=== PATIENT | male | born 1945 | race Caucasian/White ===

== ENCOUNTER 2019-05-27 08:19 | Inpatient (IN) | payer OTHER ==
[2019-05-27] VITALS (12 sets, daily range): BP systolic 89–162; BP diastolic 51–76
[~2019-05-27] VITALS: Ht 172.7 cm; Wt 35.0 kg
--- NOTE | 2019-05-27 08:20 | NUR ---
PT PRESENTS TO ED FROM [facility] WITH C/O SOB. PER PT HIS "LUNGS HURT" PT IS AAOX4 SPEAKING IN FULL SHORT SENTENCES REPORTS PRODUCTIVE COUGH WITH YELLOW PHLEGM PT IS SOB WITH LABORED BREATHING PT HAS HX OF COPD AND USP SMOKER PT ON FULL CM SINUS TACH, PLACED ON OXYGEN VIA MASK O2 SAT AT 68%, MILD DISTRESS, PT IN POSITION OF COMFORT WITH HOB ELEVATED AWAITING MD BLACKWELL AND ORDERS WILL MONITOR.
--- NOTE | 2019-05-27 08:26 | NUR ---
EKG IN PROGRESS
--- NOTE | 2019-05-27 08:27 | NUR ---
DR VENTURA AT BEDSIDE FOR MSE.
--- NOTE | 2019-05-27 08:30 | NUR ---
ABG BLOOD DRAW IN PROGRESS BY RT
--- NOTE | 2019-05-27 08:35 | NUR ---
LAB AT BEDSIDE FOR BLOOD DRAW
--- NOTE | 2019-05-27 08:45 | NUR ---
ABG RESULTS GIVEN TO DR VENTURA BY RT, PER DR VENTURA, PT TO BE INTUBATED PROCEDURE EXPLAINED TO PT PT VERBALIZED UNDERSTANDING AND AGREES WITH POC
--- NOTE | 2019-05-27 08:54 | NUR ---
INTUBATION IN PROGRESS. PT MEDICATED WITH ETOMIDATE 20MG IVP AND SUCCINYLCHOLINE 100MG IVP RT AT BEDSIDE DR VENTURA AT BEDSIDE APRIL RT AT BEDSIDE
--- NOTE | 2019-05-27 09:00 | NUR ---
PT PLACED ON SOFT RESTRAINS TO BILATERAL WRISTS FOR SAFETY.
[2019-05-27 09:01] LABS: CALCIUM 9.3 mg/dL (8.5-10.1); CARBON DIOXIDE 27.1 mmol/L (21-32); CHLORIDE SERUM 100 mmol/L (98-107); CREATININE SERUM 1.4 mg/dL (0.7-1.3); GLUCOSE SERUM 303 mg/dL (74-106); POTASSIUM SERUM 4.3 mmol/L (3.5-5.1); SODIUM SERUM 138 mmol/L (136-145)
[2019-05-27 09:03] LABS: BASOPHIL % 0.3 % (0-2)
[2019-05-27 09:06] LABS: ALKALINE PHOSPHATASE 88 U/L (46-116); ALT/SGPT 83 U/L (16-63); AST/SGOT 51 U/L (15-37); BILIRUBIN TOTAL 0.7 mg/dL (0.20-1.00); TOTAL PROTEIN, SERUM 7.2 g/dL (6.4-8.2)
[2019-05-27 09:08] LABS: ALBUMIN 3.3 g/dL (3.4-5.0)
--- NOTE | 2019-05-27 09:13 | NUR ---
PROPOFOL INFUSION STARTED AT THIS TIME AT 10MCG/KG/MIN DUE TO PTS RESTLESSNESS AND BITTING ON INTUBATION TUBE, RT AT BEDSIDE FOR SUCTIONING
[2019-05-27] MEDS ORDERED: LIPITOR10 MG PO (09:14)
[2019-05-27] MEDS ORDERED: REM15 PO (09:14)
[2019-05-27] MEDS ORDERED: PULMICORT0.5 MG/2 M NEB (09:14)
[2019-05-27] MEDS ORDERED: VITAMIN A AND1 EACH PO (09:14)
[2019-05-27] MEDS ORDERED: ALBUTEROL SULFAT3 ML NEB (09:15)
[2019-05-27] MEDS ORDERED: GOOD NEIGH1200 MG/15 PO (09:15)
[2019-05-27] MEDS ORDERED: PRE20 PO (09:15)
[2019-05-27] MEDS ORDERED: XARELTO10 M1 PO (09:15)
[2019-05-27] MEDS ORDERED: DULCOLAX10 M1 RC (09:15)
--- NOTE | 2019-05-27 09:15 | NUR ---
PORTABLE CXR AT BEDSIDE AT THIS TIME
[2019-05-27] MEDS ORDERED: GUAIFENESIN AN118 ML PO (09:16)
[2019-05-27] MEDS ORDERED: SENNA8.6 M2 PO (09:16)
[2019-05-27] MEDS ORDERED: TRAMADOL HCL50 MG PO (09:16)
[2019-05-27 09:30] LABS: PLATELET COUNT 451 x10^3mcL (130-400); RED CELL DISTRIBUTION WIDTH 15.4 % (11.5-14.5)
--- NOTE | 2019-05-27 09:49 | NUR ---
PTS DAUGHTER KWESI AT BEDSIDE REPORTS PT HAS BEEN IN AND OUT OF HOSPITAL AND REHAB FACILITIES SINCE March, DAUGHTER REPORTS PT WAS AT [facility] ON 03/26/19 THEN DISCHARGED TO [facility] FOR REHAB UNSURE SHE IS UNSURE OF THE EXACT CAUSE, PT THEN HAS BEEN TO [facility] X 3 EVENTS SINCE AND TRANSFERRED TO [facility] AND THEN TO [facility] SINCE 05/26/19. PT RESTING COMFORTABLY AT THIS TIME. WILL MONITOR
--- NOTE | 2019-05-27 10:05 | NUR ---
2ND ABG BLOOD DRAW IN PROGRESS RT AT BEDSIDE PT IN NO DISTRESS WILL CONTINUE TO MONITOR
[2019-05-27 10:11] LABS: UA SPECIFIC GRAVITY 1.015 (1.005-1.035); microscopic required? YES; urine erythrocyte 3+ (NEGATIVE)
--- NOTE | 2019-05-27 10:45 | NUR ---
PT RESTING COMFORTABLY NO DISTRESS VSS IV SITES PATENT WILL CONTINUE TO MONITOR
--- NOTE | 2019-05-27 11:13 | NUR ---
UNABLE TO OBTAIN A LARGE BORE IV IN ANTECUBITAL SPACE OR ABOVE FOR CT ANGIO ER NOTIFIED. DR VENTURA WILL ATTEMPT CENTRAL LINE PLACEMENT. PTS DAUGHTER MADE AWARE VERBALIZED UNDERSTANDING AND CONSENTS FOR THE TREATMENT
--- NOTE | 2019-05-27 11:15 | NUR ---
DR VENTURA AWARE OF PTS BP 86/[address] VENTURA VERBAL ORDER TO BOLUS PT WITH NS FLUID. PROPOFOL INFUSION ADJUSTED TO 8MCG/KG/MIN PT IN NO DISTRESS DAUGHTER AT BEDSIDE AWARE OF ALL TREATMENT VERBALIZED UNDERSTANDING.
--- NOTE | 2019-05-27 11:20 | NUR ---
PT MEDICATED WITH FENTANYL 100MCG PER DR VENTURA'S ORDERS FOR PAIN AND FURTHER SEDATION, PRE-CENTRAL LINE INSERTION
--- NOTE | 2019-05-27 11:32 | NUR ---
JAMESON SPENCER FROM US, RT AT BEDSIDE FOR CENTRAL LINE INSERTION AT THIS TIME
--- NOTE | 2019-05-27 11:58 | NUR ---
UNSUCESSFULL CENTRAL LINE PLACEMENT TO R JUGULAR. RT REMAINS AT BEDSIDE DR VENTURA WILL MAKE A 2ND ATTEMPT AT THE L JUGULAR SITE INSTEAD
--- NOTE | 2019-05-27 12:01 | NUR ---
PT MOVING DUE TO LOW BP PROPOFOL [id number] WAS NOT INCREASED AT THIS TIME. PT MEDICATED WITH VERSED 5MG IVP INSTEAD PER DR VENTURA'S ORDERS. DR VENTURA AT BEDSIDE FOR 2ND CENTRAL LINE IV INSERTION
--- NOTE | 2019-05-27 12:10 | NUR ---
CENTRAL LINE ESTABLISHED TO L JUGULAR WITH NO PROBLEM BY DR VENTURA. WILL CONTINUE TO MONITOR
--- NOTE | 2019-05-27 12:10 | NUR ---
PROPOFOL INFUSION STOPPED AT THIS TIME. DUE TO LOW BP 78/41 (53)
--- NOTE | 2019-05-27 12:30 | NUR ---
DR VENTURA AWARE OF PTS LOW BP, PER DR VENTURA I WILL START LEVOPHED DRIP
--- NOTE | 2019-05-27 12:42 | NUR ---
LEVOPHED INFUSION STARTED AT THIS TIME AT 8MCG/MIN
--- NOTE | 2019-05-27 12:58 | NUR ---
REPORT GIVEN TO ESTIVEN SANCHEZ RESUMING CARE OF PT IN ICU
--- NOTE | 2019-05-27 12:59 | NUR ---
FAMILY MADE AWARE OF PTS STATUS AND POC BY DR VENTURA, PTS SISTERS AT BEDSIDE WILL CONTINUE TO MONITOR
--- NOTE | 2019-05-27 13:02 | NUR ---
LAB BLOOD DRAW AT BEDSIDE AT THIS TIME
--- NOTE | 2019-05-27 13:03 | NUR ---
PROPOFOL INFUSION RE-STARTED AT THIS TIME AT 5MCG/KG/MIN
--- NOTE | 2019-05-27 13:05 | NUR ---
REPORT GIVEN TO PAUL SANCHEZ RESUMING CARE OF PT AT THIS TIME.
--- NOTE | 2019-05-27 13:31 | NUR ---
PT WAS IN STERILE PROCEDURE AT THIS TIME. WILL START HHNTX ON NEXT ROUND. UNABLE TO GIVE TX.
--- NOTE | 2019-05-27 13:34 | NUR ---
PT WENT AND RETURNED FROM CT SCANNER. PROPOFOL RAISED TO 10MCG/KG/MIN . PROCEDURE COMPLETED WITH NO COMPLICATIONS. PT RETURNED BACK TO ROOM T2B. PLACED BACK ON . CONTINUE TO [facility].
--- NOTE | 2019-05-27 13:40 | NUR ---
I RESUMED CARE OF PT AT THIS TIME. PT ON FULL CM NO DISTRESS NOTED. VSS LEVOPHED INFUSION REMAINS INFUSING AT 6MCG/MIN, PROPOFOL CHANGED TO 5MCG/MIN AT THIS TIME. AWAITING CT ANGIO RESULTS TO TRANSPORT PT TO ICU.
--- NOTE | 2019-05-27 14:00 | NUR ---
LEVOPHED INFUSION CHANGED TO 4MCG/MIN AT THIS TIME. PTS ON FULL CM NO DISTRESS WILL CONTINUE TO MONITOR
--- NOTE | 2019-05-27 14:10 | NUR ---
PT CLEARED TO GO TO ICU, PTS DAUGHTERS MADE AWARE.
--- NOTE | 2019-05-27 14:20 | NUR ---
TOTAL OF 1000ML OF URINE NOTED IN ANDERSON BAG
--- NOTE | 2019-05-27 14:29 | NUR ---
PT TO ICU VIA [facility] RT AT BEDSIDE VENTILATING VIA BVM, PAUL RN ACCOMPANYING PT, REGINO EMT ASSISTING WITH TRANSPORT. PTS DAUGHTER ACCOMPANYING PT TO ICU, ESTIVEN RN MADE AWARE. PT TRANSFERRED OUT OF ED AT THIS TIME
--- NOTE | 2019-05-27 14:30 | NUR ---
RECEIVED THE PATIENT FROM ER DEPT VIA [facility]; THE PATIENT IS SEDATED WITH PROPOFOL AT 5MCG/KG/MIN. PATIENT OPENS HIS EYES AND RESPONSIVE TO VERBAL STIMULI. THE PATIENT GESTURES TO COMMUNICATE. RIGHT PUPIL WITH BRISK REACTION TO LIGHT; LEFT PUPIL IS IRREGULAR. ETT [address] AND SECURED AT FACE AND AT 26CM AT LIPLINE. ETT TO VENT VIA PCV/AC MODE: RATE 16, PRESSURE 18, PEEP 5 AND FIO2 100%. OGT IN PLACE AND SECURED TO ETT. OGT PLACEMENT IS VERYFIED WITH SOME AIR BOLUS. OGT CLAMPED AT THIS TIME. NO RESIDUAL NOTED. LIJ CVC WITH DRESSING INTACT. ANDERSON CATH TO GRAVITY DRAINING YELLOWISH WHITE CLOUDY URINE OUTPUT. THE PATIENT IS HOOKED UP TO FULL MONITOR, WHICH READS AFIB. IV SITES TO LAC, RIGHT HAND AND RIGHT WRIST. LEVOPHED IS ON HOLD DUE TO BP 138/71 AND MAP 88. IVF NS IS RUNNING AT 50ML/HR. CALL LIGHT WITHIN REACH. SIDE RAILS UP X3. BED IS AT LOWEST POSITION. ALARM IS ON. HEAD OF BED IS ELEVATED AT 30 DEGREES. BLE ELEVATED ON A PILLOW. ASSESSMENT IMPLEMENTED BASED ON THE INFORMATION PROVIDED BY THE PATIENT AND THE DAUGHTER, CHUY AT BEDSIDE.
--- NOTE | 2019-05-27 18:35 | NUR ---
THE PATIENT'S BP 75/44 WITH MAP 52; LEVOPHED RESUMED AT 2MCG/MIN.
--- NOTE | 2019-05-27 18:38 | NUR ---
NIBP 75/44, MAP 52. LEVOPHED DRIP RESTARTED AT 2 MCG/MIN. LAURA JEAN-BAPTISTE MADE AWARE.
--- NOTE | 2019-05-27 18:49 | NUR ---
ISOGEL MATTRESS IS SET UP FOR THE PATIENT. OGT FEEDING IS INITIATED WITH VITAL AF AT 10ML/HR AND FREE WATER FLUSH AT 50ML/Q4HR.
--- NOTE | 2019-05-27 18:50 | NUR ---
BP 117/60 AND MAP 79; LEVOPHED IS TITRATED FROM 2MCG/MIN DOWN TO 1MCG/MIN.
--- NOTE | 2019-05-27 19:05 | NUR ---
RECEIVED REPORT FROM HARSHA SANCHEZ. WILL RESUME CARE.
--- NOTE | 2019-05-27 19:22 | NUR ---
RECEIVED PT INTUBATED AND SEDATED ON PROPOFOL AT 5MCG/KG/MIN. 8.0 ETT AT 26CM LL INTACT AND SECURED. OPENS EYES SPONTANEOUSLY. RESPOCSIVE TO VERBAL STIMULI. OGT INTACT AND SECURED TO ETT. ON VENT PCV-AC MODE WITH SETTINGS OF FIO2 100%, R 16, PEEP 5, PRESSURE SUPP 18. BREATHING E/U. LUNG SOUNDS DIMINISHED BILATERALLY. S1S2 AUSCULTATED WITH NO MURMURS NOTED. 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 PT SHAKES HEAD, NO PAIN AT THIS TIME. LIJ CVC INTACT AND PATENT, DRESSING CDI. L AC, R HAND, R WRIST IV SITES WNL, DRESSINGS CDI. NS INFUSING AT 50CC/HR. LEVOPHED AT 1MCG/MIN. CAP REFILL <3 SEC. PULSES PALPABLE. NO EDEMA NOTED. SKIN WARM, DRY. BLANCHABLE REDNESS NOTED TO BACK OF CROTOM AND SACRAL AREA, OPTIFOAM IN PLACE TO SCARAL AREA. ABDOMEN ROUND, NONTENDER. BS ACTIVE X 4. NO N/V. OGT P[LACEMENT CHECKED. VITAL AF 1.2 INCREASED FROM 1CC/HR TO 20CC/HR, RESIDUAL 5CC, GOAL 30CC/HR. FWF 50CC Q4HRS. ANDERSON CATHETER IN PLACE DRAINING VIA GRAVITY PALE YELLOW URINE. BED IN LOW POSITION. BONY PROMINENCES OFFLOADED. CALL LIGHT WITHIN REACH. WILL CONTINUE TO MONITOR.
--- NOTE | 2019-05-27 23:53 | NUR ---
DR. BENTLEY AT BEDSIDE ASSESSING PT. UPDATES PROVIDED. NO NEW ORDERS AT THIS TIME.
[2019-05-28] VITALS (16 sets, daily range): BP systolic 91–132; BP diastolic 50–65
--- NOTE | 2019-05-28 00:05 | NUR ---
MESSI RT AT BEDSIDE ASSESSING PT. FIO2 DECREASED FROM 100% TO 80%. 02SAT 99%.
--- NOTE | 2019-05-28 02:05 | NUR ---
LEVOPHED GTT OFF AT THIS TIME. BP 103/52. MAP 77.
--- NOTE | 2019-05-28 04:30 | NUR ---
SIGNAL WORKER AT BEDSIDE FOR BLOOD DRAW.
[2019-05-28 05:47] LABS: BASOPHIL % 0.3 % (0-2); PLATELET COUNT 276 x10^3mcL (130-400)
[2019-05-28 05:55] LABS: RED CELL DISTRIBUTION WIDTH 15.3 % (11.5-14.5)
[2019-05-28 05:56] LABS: CALCIUM 8.2 mg/dL (8.5-10.1); CARBON DIOXIDE 24.6 mmol/L (21-32); CHLORIDE SERUM 104 mmol/L (98-107); CREATININE SERUM 1.4 mg/dL (0.7-1.3); GLUCOSE SERUM 263 mg/dL (74-106); SODIUM SERUM 140 mmol/L (136-145)
--- NOTE | 2019-05-28 07:07 | NUR ---
GAVE REPORT TO HARSHA SANCHEZ. ALL QUESTIONS AND CONCERNS ADDRESSED.
--- NOTE | 2019-05-28 07:15 | NUR ---
THE PATIENT REMAINS INTUBATED AND SEDATED WITH PROPOFOL AT 5MCG/KG/MIN. PATIENT RESPONDS TO VERBAL STIMULI AND FOLLOWS COMMANDS. PATIENT GESTURES TO COMMUNICATE. RIGHT PUPIL WITH BRISK REACTION TO LIGHT; LEFT PUPIL IS IRREGULAR. ETT [address] AND SECURED TO FACE AND AT 26CM AT LIPLINE. ETT TO VENT VIA PCV/AC MODE: RATE 16, PRESSURE 18, PEEP 5 AND FIO2 60%. OGT IN PLACE AND SECURED TO ETT. OGT PLACEMENT IS VERIFIED WITH SOME AIR BOLUS. NO GASTRIC RESIDUAL NOTED AT THIS TIME. OGT TO TUBE FEEDING WITH VITAL AF AT 30ML/HR AND FREE WATER FLUSH AT 50ML/Q4HR. ORAL CARE PROVIDED TO THE PATIENT. CVC TO LIJ WITH DRESSING INTACT. IVF NS AT 50ML/HR. TELE # 3 READS AFIB. OTHER IV SITES TO LAC, RIGHT HAND, AND RIGHT WRIST. ANDERSON CATH TO GRAVITY DRAINING PALE YELLOW URINE OUTPUT. CALL LIGHT WITHIN REACH. SIDE RAILS UP X3. BED IS AT LOWEST POSITION. ALARM IS ON. HEAD OF BED ELEVATED. BLE ELEVATED ON A PILLOW.
--- NOTE | 2019-05-28 08:04 | NUR ---
DECREASED FiO2 TO 50%.
--- NOTE | 2019-05-28 08:15 | NUR ---
RT QUIROGA IS AT BEDSIDE TITRATING THE FIO2 OF VENT FROM 60% TO 50%.
--- NOTE | 2019-05-28 09:20 | NUR ---
REENA BRODY IS AT BEDSIDE SEEING THE PATIENT.
--- NOTE | 2019-05-28 10:09 | NUR ---
DECREASED FiO2 TO 40%.
--- NOTE | 2019-05-28 11:35 | NUR ---
THE CIVIL RIGHTS ATTORNEY AND THE FAMILY ARE AT BEDSIDE PRAYING FOR THE PATIENT.
--- NOTE | 2019-05-28 12:06 | NUR ---
DECREASED FiO2 TO 30%.
--- NOTE | 2019-05-28 13:31 | NUR ---
THE VANCO TROUGH LEVEL IS 20.4; PHARMACIST ALISON WAS CALLED AND NOTIFIED THE LEVEL. PER ALISON, HOLD THE VANCO DOSE AT 1400 PM. HE WILL ADJUST THE VANCO DOSAGE AND FREQUENCY.
--- NOTE | 2019-05-28 14:20 | NUR ---
THE KIMBER HO CHANGED THE VENT SETTING TO CPAP MODE: PEEP 5 AND PSV 10. TUBE FEEDING IS ON HOLD. ALSO IS PROPOFOL. INSTRUCTED THE PATIENT TO PRACTICE BREATHING WHILE ON CPAP. PATIENT GESTURING AGREEMENT.
--- NOTE | 2019-05-28 14:27 | NUR ---
DR. STILL AT BEDSIDE, PLACED PT ON CPAP 5 WITH PSV 10 AND FiO2 30%.
--- NOTE | 2019-05-28 14:30 | NUR ---
TUBE FEEDING ON HOLD AND PROPOFOL WAS HELD TO PREPARE THE PATIENT FOR CPAP TRIAL. INSTRUCTED THE PATIENT TO PRACTICE BREATHING; THE PATIENT GESTURES UNDERSTANDING.
--- NOTE | 2019-05-28 14:40 | NUR ---
THE PATIENT IS ON CPAP WITH PEEP 5 AND PSV 10. TUBE FEEDING IS TEMPORARY ON HOLD. PROPOFOL IS ON HOLD. INSTRUCTED THE PATIENT TO PRACTICE BREATHING WHILE ON CPAP MODE.
--- NOTE | 2019-05-28 16:16 | NUR ---
DR. CORNELL IS AT BEDSIDE ASSESSING THE PATIENT. UPDATE PROVIDED TO THE DOCTOR.
--- NOTE | 2019-05-28 16:43 | NUR ---
THE PATIENT HAD BM WITH LOOSE STOOL. PATIENT WAS CLEANSED, GIVEN A BATH. LINEN WAS CHANGED. ANDERSON CARE AND CENTRAL LINE PROVIDED TO THE PATIENT.
--- NOTE | 2019-05-28 17:11 | NUR ---
NOTE FOR EXTUBATION: AT 1702, THE PATIENT WAS EXTUBATED AND PUT ON OXYGEN 2L/MIN VIA NASAL CANNULA. THE PATIENT'S OXYGEN SAT 95%, RESPIRATORY RATE BETWEEN 14 AND 17. PATIENT WAS INSTRUCTED NOT TO TALK FOR A COUPLE OF HOURS TO PROTECT THE VOCAL CORD. THE PATIENT GESTURES UNDERSTANDING.
--- NOTE | 2019-05-28 17:35 | NUR ---
THE PATIENT COMPLAINED OF PAIN TO IV SITE AT RIGHT WRIST; THE HEPLOCK WAS REMOVED WITH CATH INTACT. PRESSURE DRESSING APPLIED TO THE SITE.
--- NOTE | 2019-05-28 18:55 | NUR ---
THE PATIENT IS RESTING IN BED WITH NO DISTRESS; PATIENT REMAINS ON OXYGEN AT 2L/MIN VIA NASAL CANNULA AND O2 SAT >95%. WILL ENDORSE CARE TO ONCOMING RN.
--- NOTE | 2019-05-28 19:30 | NUR ---
RECEIVED PT IN BED RESTING QUIETLY. HE IS ALERT,ORIENTED X4. NO C/O HEADCAHE AND DIZZINESS. PT WAS EXTUBATED THIS AFTERNOON. LUNG SOUNDS DIMINISHED. NO SOB NOTED. RESP. EVEN AND UNLABORED. ON O2 AT 2L VIA N/C AND SATTING 99%. BOWEL SOUNDS ACTIVE. PT HAS NO C/OPAIN AT THIS TIME. W/ANDERSON CATH DRAINING YELLOW URINE. W/IVF AT 50 CC/HR VIA CENTRAL LINE TO LTIJ. W/ HL TO LTAC AND RT HAND.CALL LIGHT W/IN REACH.
--- NOTE | 2019-05-28 23:59 | NUR ---
PT ASLEEP BUT EASILY AROUSBALE. HE REMAINS ORIENTED X4 . NO SOB NOTED. ON O2 AT 2L VIA N/C W/ SATSOF 96%, PT HASNO C/O PAIN OR DISCOMFORT AT THIS TIME. CALL LIGHT W/IN REACH.
[2019-05-29] VITALS (7 sets, daily range): BP systolic 120–147; BP diastolic 54–64; Ht 172.7 cm; Wt 35.0 kg
--- NOTE | 2019-05-29 02:21 | NUR ---
PT AWAKE AT THIS TIME AND USING THE INCENTIVE SPIROMETER.
--- NOTE | 2019-05-29 04:35 | NUR ---
PT AWAKE AT THIS TIME AND REMAINS ORIENTED X4. HE SLEPT FAIRLY DURING THE NIGHT. HE HAD NO EPISODE OF SOB AND REMAINS ON 2L O2 VIA N/C. HE HADNO C/O PAIN. PT STATED HIS THROAT DOES NOT HURT ANYMORE AND HE WAS ABLE TO TAKE HIS PO MEDS WITH SIPS OF WATER W/O DIFFICULTY. ANDERSON CATH IN PLACE AND PATENT. NO BM NOTED THIS SHIFT.IVF NS AT 50 CC/HR INFUSING WELL VIA LTIJ TLC. ALL PORTS FLUSHING WELL. HL TO LTAC AND RT HAND INTACT. ALL NEEDS ATTENDED TO.
[2019-05-29 04:59] LABS: PLATELET COUNT 237 x10^3mcL (130-400)
[2019-05-29 05:05] LABS: CALCIUM 8.1 mg/dL (8.5-10.1); CARBON DIOXIDE 27.3 mmol/L (21-32); CHLORIDE SERUM 106 mmol/L (98-107); CREATININE SERUM 0.9 mg/dL (0.7-1.3); GLUCOSE SERUM 215 mg/dL (74-106); POTASSIUM SERUM 3.8 mmol/L (3.5-5.1); SODIUM SERUM 141 mmol/L (136-145)
[2019-05-29 05:10] LABS: BASOPHIL % 0 % (0-2); RED CELL DISTRIBUTION WIDTH 15.4 % (11.5-14.5)
--- NOTE | 2019-05-29 07:15 | NUR ---
RECIEVED REPORT FROM LINH SANCHEZ. ALL QUESTIONS ANSWERED AND ADDRESSED. WILL ASSUME CARE OF PT.
--- NOTE | 2019-05-29 08:30 | NUR ---
NURSING SWALLOW SCREEN AT THIS TIME WITH APPLESAUCE AND WATER. PT TOLERATED WELL. NO S/S OF ASPIRATION OR COUGHING. PT DENIES DIFFICULTY IN SWALLOWING OR PAIN UPON SWALLOWING. MARY GRACE NOTIFIED
--- NOTE | 2019-05-29 08:41 | NUR ---
PT HAD A FOUR SECONDS OF VTACH IN THE 185'S. ASSESSED PT AND ASKED IF CP, DIZZINESS, SOB, OR VERTIGO WAS PRESENT. PT DENIED ALL SYMPTOMS. WILL CONT TO MONITOR.
--- NOTE | 2019-05-29 09:38 | NUR ---
MARY GRACE VALLES STATES FOR PT TO BE ON SOFT MECHANICAL CCHO DIET. WILL CARRY OUT ORDER.
--- NOTE | 2019-05-29 10:26 | NUR ---
CLAUDIO CALLED FOR MRSA IN [place]. MARY GRACE VALLES NOTIFIED.
--- NOTE | 2019-05-29 11:08 | NUR ---
DR. STILL AT BEDSIDE ASSESSING PT. UPDATES PROVIDED. ORDER FOR PT EVAL AND HAVE PT USE SI. OK TO GO UPSTAIRS. WILL CARRY OUT ORDERS.
--- NOTE | 2019-05-29 13:25 | NUR ---
Initial Nutrition Assessment: IC03/A KARTHIK MORRIS HR Dx: Respiratory failure, PNA PMHx: COPD, high cholesterol PSHx: unknown Labs: BG 215H, BUN 24H, HGB 9.8L, ALB 3.3L Meds: D 50%. Dulcolax, humulin, lantus, Lipitor, Pepcid, vancomycin, zosyn Diet: mechanically soft- chopped (CCHO- 60, 1800K) PO Intake: not documented Ht: 172.72 cm (68") Wt: 34.9 kg (77#) BMI: 11.7 kg/m2 (inaccurate) Bed scale: 75 kg IBW: 154# (70 kg) %IBW: 50 UBW: 75 kg Age: 73/M Food Allergies: NKFA Skin: erythema to sacral area Andrew: 16 Edema: none GI: Last BM: none at this time Per H&P, Pt is a 73-year old male who is a senior living resident of [facility] who was found to be in respiratory distress, EMS was called and patient was brought to the ER. In the ER patient was found to be in severe distress with hypoxia he was intubated and placed on vent by ER physician. RDN Visit (05/29): Patient was alert and oriented and said that he has fair appetite and did not eat his breakfast this morning. Patient was concerned about his diabetes and says that he has diabetes since a year or two. Questions about diabetic diet and ONS Ensure were answered. Patient is willing to consume Glucerna. Pt is currently on 2L nasal cannula. Problem with: N/V/D/C: none Problems with: Chewing/Swallowing: yes, current on mechanically soft chopped diet Current appetite: fair Recent wt change: none %wt change: n/a Vitamin/Supplement use: sometimes, does not know the name Special diet at home: Diabetic Physical activity: sedentary Nutrition education given: Diabetes diet education was provided. Concepts like high fiber diet were discussed. Food-drug interactions: lipitor- avoid grapefruit Education given: no Estimated Nutritional Needs Based on current body weight 75 kg Energy: 8682-8240 kcal/d (25-30 kcal/kg) Protein: 75-90 g/d (1.0-1.2 g/kg) - preserve LBM Fluid: 5991-0765 ml/d (1 ml/kcal) or per doctor Nutrition Diagnosis 1. Inadequate oral intake related to poor PO as evidenced by slef- reported PO <75%. Intervention 1. Recommend continuing Mechanically soft- chopped (CCHO- 60, 1800K) diet. 2. Recommend Glucerna BID. Discussed recommendations with REENA Hammond. Monitor/Evaluate Goal: PO intake at least 75% of estimated needs Monitor: PO intake, Labs, GI function F/U in 3-5 days as moderate risk 06/01-
--- NOTE | 2019-05-29 13:25 | NUR ---
1. Recommend continuing Mechanically soft- chopped (CCHO- 60, 1800K) diet. 2. Recommend Glucerna BID. Discussed recommendations with REENA Hammond.
--- NOTE | 2019-05-29 14:00 | NUR ---
PHYSICAL THERAPY AT BEDSIDE DOING EVAL.
--- NOTE | 2019-05-29 16:50 | NUR ---
REPORT GIVEN TO CANDI SANCHEZ. ALL QUESTIONS ANSWERED AND ADDRESSED. PT WILL BE GOING TO ROOM 205-A VIA BED AND WITH PORTABLE O2 ON 2L NC.
--- NOTE | 2019-05-29 17:30 | NUR ---
TRANSFERRED PT TO ROOM 205-A WITH NO COMPLICATIONS. PT TOLERATED WELL. PT'S FAMILY NOTIFIED AND AT BEDSIDE AT THIS TIME.
--- NOTE | 2019-05-29 17:54 | NUR ---
RECEIVED FROM ICU IN NO RESP. DISTRESS. AWAKE, ALERT AND ORIENTED. VS WNL. ON O2 2L N/C SATS 96% NO SOB NOTED. IVF INFUSING WELL AND SITE CLEAR. PT ORIENTED TO ROOM, CALL LIGHT WITHIN REACH. FAMILY AT BEDSIDE. WILL CONTINUE WITH PLAN OF CARE.
--- NOTE | 2019-05-29 18:37 | NUR ---
REMAINS IN NO DISTRESS, AWAKE AND ALERT. FAMILY AT BEDSIDE. NO CHANGES IN VS. IVF INFUSING WELL. NO C/O PAIN OR DISCOMFORT. CALL LIGHT WITHIN REACH. WILL BE ENDORSED TO INCOMING SHIFT.
--- NOTE | 2019-05-29 19:20 | NUR ---
RECEIVED PT FROM PREVIOUS SHIFT. PT A/OX4. DENIES PAIN. DENIES SOB ON 2L. LIJ CDI. F/C DRAINING TO GRAVITY. FAMILY AT BEDSIDE. CALL LIGHT WITHIN REACH, BED IN LOW POSITION. WILL CONTINUE TO MONITOR.
--- NOTE | 2019-05-30 01:01 | NUR ---
PT RESTING IN NO ACUTE DISTRESS. RR EVEN AND UNLABORED. CALL LIGHT WITHIN REACH, BED IN LOW POSITION. WILL CONTINUE TO MONITOR.
[2019-05-30 05:48] VITALS: BP 142/69
[2019-05-30 06:18] LABS: BASOPHIL % 0.1 % (0-2); PLATELET COUNT 223 x10^3mcL (130-400)
[2019-05-30 06:21] LABS: RED CELL DISTRIBUTION WIDTH 14.8 % (11.5-14.5)
[2019-05-30 06:40] LABS: CALCIUM 7.7 mg/dL (8.5-10.1); CARBON DIOXIDE 24.1 mmol/L (21-32); CHLORIDE SERUM 103 mmol/L (98-107); GLUCOSE SERUM 262 mg/dL (74-106); POTASSIUM SERUM 3.8 mmol/L (3.5-5.1); SODIUM SERUM 136 mmol/L (136-145)
--- NOTE | 2019-05-30 07:30 | NUR ---
RECEIVED PT RESTING IN BED. AAOX4. RESP EVEN AND UNLABORED ON O2 2LPM VIA NC. RT PROTOCOL. CONTACT ISOLATION. NO C/O PAIN. LIJ TLC, DRESSING C/D/I. HOB ELEVATED. GEN WEAKNESS. IVF INFUSING, NO REDNESS OR SWELLING TO LIJ SITE. FALL AND ASPIRATION PRECAUTIONS. BED IN LOW POSITION, CALL LIGHT WITHIN REACH. WILL CONTINUE TO MONITOR.
[2019-05-30 08:15] VITALS: BP 147/70
--- NOTE | 2019-05-30 12:46 | NUR ---
PT IN NO ACUTE DISTRESS. SITTING UP IN BED EATING LUNCH. RESP EVEN AND UNLABORED ON O2 2LPM VIA NC. PT RECEIVED BREATHING TREATMENT EARLIER REQUESTED. IVF INFUSING, NO REDNESS OR SWELLING TO LIJ SITE. HOB ELEVATED. FALL AND ASPIRATION PRECAUTIONS. CALL LIGHT WITHIN REACH. WILL CONTINUE TO MONITOR.
[2019-05-30 13:08] VITALS: BP 146/69
[2019-05-30 16:36] VITALS: BP 144/66
--- NOTE | 2019-05-30 16:57 | NUR ---
PT RESTING IN BED. NO ACUTE DISTRESS. AAOX4. RESP EVEN AND UNLABORED ON 2LPM VIA NC. NO RESP DISTRESS NOTED. ANDERSON CARE PROVIDED PER PROTOCOL AT THIS TIME. IVF INFUSING, NO REDNESS OR SWELLING TO LIJ SITE. FAMILY AT BEDSIDE. CALL LIGHT WITHIN REACH. WILL CONTINUE TO MONITOR.
--- NOTE | 2019-05-30 18:21 | NUR ---
PT RESTING IN BED. NO ACUTE DISTRESS. BREATHING EVEN AND UNLABORED 2LPM O2 VIA NC. HOB ELEVATED. FALL PRECAUTIONS IN PLACE. CONTACT ISOLATION. IVF INFUSING, NO REDNESS OR SWELLING TO LIJ SITE. FAMILY AT BEDSIDE, UPDATED WITH PLAN OF CARE. BED IN LOW POSITION, CALL LIGHT WITHIN REACH. WILL ENDORSE TO ONCOMING SHIFT.
--- NOTE | 2019-05-30 19:30 | NUR ---
RECIEVED PATIENT AT START OF SHIFT A/O X4. DENIES PAIN. NO SOB ON 2L NC. BLL SOUND DIMINISHED. IS AT BEDSIDE. LIJ DRESSING CDI, ALL PORTS PATENT, SALINE LOCKED. ON TELE 17, SR/ST 99-102. ANDERSON DRAINING CLEAR DARK YELLOW URINE. BED LOCKED AND IN LOWEST POSIITON. CALL LIGHT AND BEDSIDE TABLE WITHIN REACH.
[2019-05-30 20:32] VITALS: BP 151/70
--- NOTE | 2019-05-31 00:30 | NUR ---
PATIENT IS AWAKE, HAS EXPIRATORY WHEEZE AND COUGH. RT PAGED TO GIVE BREATHING TREATMENT.
--- NOTE | 2019-05-31 01:19 | NUR ---
PATIENTS EYES ARE CLOSED, BREATHS EVEN AND REGULAR, NO SIGNS OF DISTRESS. CALL LIGHT AND BEDSIDE TABLE WITHIN REACH.
[2019-05-31 05:48] VITALS: BP 148/69
[2019-05-31 05:50] VITALS: BP 148/69
--- NOTE | 2019-05-31 06:09 | NUR ---
PATIENT IS AWAKE. EXPIRATORY WHEEZE NOTED, O2 SAT 89%. NC INCREASED TO 3L. NOW SATTING 93%. RT PAGED FOR BREATHING TREATMENT.
--- NOTE | 2019-05-31 06:10 | NUR ---
ANDERSON CARE AND CHG BATH PROVIDED DUE TO CENTRAL LINE.
[2019-05-31 06:17] LABS: PLATELET COUNT 237 x10^3mcL (130-400)
[2019-05-31 06:18] LABS: CALCIUM 7.9 mg/dL (8.5-10.1); CARBON DIOXIDE 23.7 mmol/L (21-32); CHLORIDE SERUM 100 mmol/L (98-107); CREATININE SERUM 0.9 mg/dL (0.7-1.3); GLUCOSE SERUM 277 mg/dL (74-106); MAGNESIUM 1.7 mg/dL (1.8-2.4); POTASSIUM SERUM 4.2 mmol/L (3.5-5.1); SODIUM SERUM 134 mmol/L (136-145)
--- NOTE | 2019-05-31 06:39 | NUR ---
PATIENTS LUNG SOUNDS HAVE CLEARED. NO SOB ON 2L NC. [facility] CENTRAL LINE CDI. ANDERSON DRAINING CLEAR YELLOW URINE. BED LOCKED AND IN LOWEST POSITION. CALL LIGHT AND BEDSIDE TABLE WITHIN REACH. WILL ENDORSE CARE TO DAYSHIFT NURSE.
[2019-05-31 06:42] LABS: BASOPHIL % 0 % (0-2); RED CELL DISTRIBUTION WIDTH 15.2 % (11.5-14.5)
--- NOTE | 2019-05-31 08:00 | NUR ---
PATIENT RECEIVED ALERT AND ORIENTED TIMES FOUR. DENIES PAIN BUT NOTED IS WITH GENERAL WEAKNESS AND TO WEAK TO WALK ON HIS OWN AND RECOMENDED TO BE UP WITH PT ONLY. VITALS AT THIS TIME AT 97.9, 88, 20, 148/69, 89% WITH O2 AT 3 LITERS NASAL CANNULA. PATIENT HAS CHEST XRAY THAT SHOWS BIBISILAR OPACITIES AND IMPROVED IN THE RIGHT WHICH MAY REPRESENT ATELECTASIS. PATIENT HAS BEEN ON SOLUMEDROL AND MERRIN AND NO ADVERSE REACTION NOTED. PATIENT AHS LAST BLOOD SUGAR 280 AND COVERAGE WAS GIVEN. PATIENT HAS NOTED E COLI IN THE URINE AND ESBL. PATIENT HAS HISTORY OF COPD, HIGH CHOLESTEROL, ASTHMA, DM, A FIB, HTN, AND LYMPHOMA. WILL CONTINUE TO MONITOR FOR ANY RESPIRATORY DISTRESS BUT DENIES AT THIS TIME.
[2019-05-31 09:00] VITALS: BP 145/64
[2019-05-31 10:44] VITALS: BP 145/64
--- NOTE | 2019-05-31 10:47 | NUR ---
PATIENT CHANGED AND HAD A LOOSE STOOL. PATIENT TOLERATED WELL AND IS RESTING AGAIN QUIETLY. HE TOLERATE THE MORNING MEAL AND IN RESPIRATORY DISTRESS AT THIS TIME.
[2019-05-31 12:50] VITALS: BP 147/73
--- NOTE | 2019-05-31 13:35 | NUR ---
OOB WITH PT AND TOLERATED WELL. SITTING UP AT BEDSIDE AT THIS TIME. NO ACUTE RESPIRATORY DISTRESS NOTED.
[2019-05-31] MEDS ORDERED: BACO TOP (14:28)
[2019-05-31] MEDS ORDERED: MERREM IV1 GM INJ (14:28)
[2019-05-31] MEDS ORDERED: APLICARE ANTIS118 M3 TOP (14:28)
[2019-05-31] MEDS ORDERED: VANCO 1 GR1 GM/250 M IV (14:32)
--- NOTE | 2019-05-31 14:40 | NUR ---
PATIENT IS FOR TRASNFER TO A SNF FOR CONTINUEDC ANTIBIOTIC THERAPY. AWAITING DISCHARGE PLAN AT THIS TIME.
--- NOTE | 2019-05-31 15:26 | NUR ---
ORDERS RECEIVED FOR DISCHARGE WHEN BED IS AVAILABLE. AWAITING ORDERS AT THIS TIME.
[2019-05-31 16:00] VITALS: BP 147/73
== END 2019-05-31 17:32 | DRG 871 ==
LOC: ED 08:19 → DU 10:04 → EDBEDREQ 10:04 → IC 10:04 → DU 05-29 17:53
PROVIDERS: Emergency Medicine; Internal Medicine; ADMIT Internal Medicine
PROC: 5A1945Z Respiratory Ventilation, 24-96 Consecutive Hours (ICD-10-PCS; principal; 2019-05-27)
PROC: 0BH17EZ Insertion of Endotracheal Airway into Trachea, Via Natural or Artificial Opening (ICD-10-PCS; 2019-05-27)
PROC: 05HM33Z Insertion of Infusion Device into Right Internal Jugular Vein, Percutaneous Approach (ICD-10-PCS; 2019-05-27)
PROC: B543ZZA Ultrasonography of Right Jugular Veins, Guidance (ICD-10-PCS; 2019-05-27)
DX: A41.9 Sepsis, unspecified organism (principal); J96.01 Acute respiratory failure with hypoxia; J18.9 Pneumonia, unspecified organism; N17.0 Acute kidney failure with tubular necrosis; N39.0 Urinary tract infection, site not specified; J44.1 Chronic obstructive pulmonary disease with (acute) exacerbation; E44.0 Moderate protein-calorie malnutrition; B96.20 Unspecified Escherichia coli [E. coli] as the cause of diseases classified elsewhere; I44.7 Left bundle-branch block, unspecified; R00.0 Tachycardia, unspecified; Z68.28 Body mass index [BMI] 28.0-28.9, adult; Z87.891 Personal history of nicotine dependence; Z79.52 Long term (current) use of systemic steroids; Z16.12 Extended spectrum beta lactamase (ESBL) resistance; Z22.322 Carrier or suspected carrier of Methicillin resistant Staphylococcus aureus
CPT/HCPCS: 36600; 82962; 97110-GP; 97116-GP; 97530-GP; A4628; G0378; J2185; J2250; J2543; J2704; J2920; J2930; J3010; J3370; J3490; J7030; J7620; Q0092; Q9967